=== PATIENT | female | born 2000 | race American Indian/Alaskan Native ===

== ENCOUNTER 2020-08-02 10:37 | Outpatient (CLI) | payer OTHER ==
[2020-08-02] MEDS ORDERED: PRENATAL CAPLE1 EAC1 PO (10:53)
[2020-08-02] MEDS ORDERED: MACROBID 100 M100 MG (10:54)
[2020-08-02] MEDS ORDERED: KEFLEX750 MG (10:54)
[2020-08-02] MEDS ORDERED: FOLIC ACID20 MG (10:54)
== END 2020-08-03 03:41 | disposition home or self-care (01) ==
LOC: OBS/DEL 10:37
PROVIDERS: ATTEND Obstetrics & Gynecology
DX: O60.03 Preterm labor without delivery, third trimester (principal)

== ENCOUNTER 2020-08-24 12:20 | Outpatient (CLI) | payer OTHER ==
[~2020-08-24 12:20] MED LIST: FOLIC ACID20 MG; KEFLEX750 MG; MACROBID 100 M100 MG; PRENATAL CAPLE1 EAC1 PO
== END 2020-08-24 17:51 | disposition home or self-care (01) ==
LOC: OBS/DEL 12:20
PROVIDERS: ATTEND Obstetrics & Gynecology
DX: O42.02 Full-term premature rupture of membranes, onset of labor within 24 hours of rupture (principal); O36.8130 Decreased fetal movements, third trimester, not applicable or unspecified; O46.8X3 Other antepartum hemorrhage, third trimester; Z3A.38 38 weeks gestation of pregnancy

== ENCOUNTER 2020-08-28 20:48 | Inpatient (IN) | payer OTHER ==
[~2020-08-28] VITALS: Ht 147.3 cm; Wt 2.3 kg
== END 2020-09-01 11:11 | disposition home or self-care (01) | DRG 788 ==
LOC: LDR 20:48 → OB/GYN 08-29 22:47
PROVIDERS: ADMIT Obstetrics & Gynecology; ATTEND Obstetrics & Gynecology
PROC: 3E0P7VZ Introduction of Hormone into Female Reproductive, Via Natural or Artificial Opening (ICD-10-PCS; 2020-08-29)
PROC: 4A1HXFZ Monitoring of Products of Conception, Cardiac Rhythm, External Approach (ICD-10-PCS; 2020-08-29)
PROC: 10D00Z1 Extraction of Products of Conception, Low, Open Approach (ICD-10-PCS; principal; 2020-08-29 20:00)
DX: O61.0 Failed medical induction of labor (principal); O42.02 Full-term premature rupture of membranes, onset of labor within 24 hours of rupture; Z3A.38 38 weeks gestation of pregnancy; Z37.0 Single live birth; Z20.822 Contact with and (suspected) exposure to COVID-19

== ENCOUNTER 2021-10-12 19:30 | Emergency (ER) | payer OTHER ==
[~2021-10-12] VITALS: Ht 152.4 cm; Wt 71.2 kg
[2021-10-12] MEDS ORDERED: ONDANSETRON HCL8 MG PO (22:46)
[2021-10-12] MEDS ORDERED: PEPCID AC20 MG PO (22:46)
== END 2021-10-12 22:54 | disposition home or self-care (01) ==
LOC: ER 19:30
DX: R11.2 Nausea with vomiting, unspecified (principal); Z88.8 Allergy status to other drugs, medicaments and biological substances; Z91.040 Latex allergy status; Z91.013 Allergy to seafood; Z20.822 Contact with and (suspected) exposure to COVID-19

== ENCOUNTER 2022-02-06 09:57 | Emergency (ER) | payer OTHER ==
[~2022-02-06] VITALS: Ht 147.3 cm; Wt 71.7 kg
[~2022-02-06 09:57] MED LIST changes: +ONDANSETRON HCL8 MG PO; +PEPCID AC20 MG PO
== END 2022-02-06 15:14 ==
LOC: ER 09:57
DX: A49.3 Mycoplasma infection, unspecified site (principal)

== ENCOUNTER 2022-05-24 12:15 | Emergency (ER) | payer OTHER ==
[~2022-05-24] VITALS: Ht 149.9 cm; Wt 72.6 kg
== END 2022-05-24 14:27 | disposition home or self-care (01) ==
LOC: ER 12:15
DX: O20.9 Hemorrhage in early pregnancy, unspecified (principal); Z3A.01 Less than 8 weeks gestation of pregnancy; Z88.8 Allergy status to other drugs, medicaments and biological substances

== ENCOUNTER 2023-04-12 12:51 | Emergency (ER) | payer OTHER ==
[~2023-04-12] VITALS: Ht 147.3 cm; Wt 66.2 kg
[2023-04-12] MEDS ORDERED: GUAIFENESIN/DEXTROMETHORPHAN 100 MG/5 ML ML PO ONE (15:45)
[2023-04-12] MEDS ORDERED: DEXAMETHASONE SODIUM PHOSPHATE 4 MG/ML VIAL IM ONE (15:45)
[2023-04-12 16:29] LABS: HEMATOCRIT 39.9 % (36.0-45.00); HEMOGLOBIN 13.2 g/dL (12.0-15.00); MEAN CELL VOLUME 79.1 fL (80.00-100.00); MEAN CORPUSCULAR HEMOGLOBIN 26.1 pg (27.00-32.0); PLATELET COUNT 273 K/uL (150-450); RED BLOOD COUNT 5.05 M/uL (4.00-6.00); RED CELL DISTRIBUTION WIDTH 14.3 % (11.5-14.5)
[2023-04-12] MEDS ORDERED: QC TUSSIN DM L118 ML PO (18:03)
== END 2023-04-12 18:11 | disposition home or self-care (01) ==
LOC: ER 12:51
PROVIDERS: Nurse Practitioner Family
DX: U07.1 COVID-19 (principal); Z88.8 Allergy status to other drugs, medicaments and biological substances; Z91.040 Latex allergy status; Z91.013 Allergy to seafood

== ENCOUNTER 2024-01-01 14:32 | Emergency (ER) | payer OTHER ==
[~2024-01-01] VITALS: Ht 147.3 cm; Wt 60.3 kg
[~2024-01-01 14:32] MED LIST changes: +QC TUSSIN DM L118 ML PO
[2024-01-01] MEDS ORDERED: FOLIC ACID0.8 M1 PO (15:06)
[2024-01-01] MEDS ORDERED: PRENATA CHEWAB1 EACH PO (15:06)
[2024-01-01] MEDS ORDERED: RINGERS SOLUTION,LACTATED 1,000 ML IV STA (15:32)
[2024-01-01 16:01] LABS: HEMATOCRIT 37.7 % (36.0-45.00); HEMOGLOBIN 12.8 g/dL (12.0-15.00); MEAN CELL VOLUME 78.2 fL (80.00-100.00); MEAN CORPUSCULAR HEMOGLOBIN 26.7 pg (27.00-32.0); MEAN CORPUSCULAR HGB CONC 34.1 g/dl (32.0-36.0); PLATELET COUNT 269 K/uL (150-450); RED BLOOD COUNT 4.82 M/uL (4.00-6.00); RED CELL DISTRIBUTION WIDTH 14.8 % (11.5-14.5)
[2024-01-01 16:12] LABS: PH,URINE 6.5 (5.0-8.0); URINE APPEARANCE Cloudy; URINE BILIRRUBIN Negative (NEGATIVE); URINE BLOOD Negative; URINE COLOR Yellow; URINE GLUCOSE Negative (NEGATIVE); URINE KETONE Trace (NEGATIVE); URINE LEUKOCYTE Trace; URINE NITRATE Negative; URINE PROTEIN Negative (NEGATIVE)
[2024-01-01 16:16] LABS: URINE EPITHELIAL CELLS 16.5 uL (0.0-38.8); URINE RBC 2.7 uL (0.0-20.8); URINE WBC 13.7 uL (0.0-23.2)
[2024-01-01 16:42] LABS: CALCIUM 9.3 mg/dL (8.5-10.1); CREATININE SERUM 0.6 mg/dL (0.55-1.02); GFR 121.8; POTASSIUM 3.86 mEq/L (3.5-5.1)
[2024-01-01] MEDS ORDERED: AMOX1TAB5 PO (20:25)
== END 2024-01-01 21:01 | disposition home or self-care (01) ==
LOC: ER 14:34
PROVIDERS: General Practice
DX: O99.611 Diseases of the digestive system complicating pregnancy, first trimester (principal); K92.89 Other specified diseases of the digestive system; R19.7 Diarrhea, unspecified; Z3A.10 10 weeks gestation of pregnancy; Z88.8 Allergy status to other drugs, medicaments and biological substances; Z91.040 Latex allergy status; Z91.013 Allergy to seafood

== ENCOUNTER 2024-01-27 13:56 | Emergency (ER) | payer OTHER ==
[~2024-01-27] VITALS: Ht 157.5 cm; Wt 64.0 kg
[~2024-01-27 13:56] MED LIST changes: +AMOX1TAB5 PO; +FOLIC ACID0.8 M1 PO; +PRENATA CHEWAB1 EACH PO
[2024-01-27 18:18] LABS: HEMATOCRIT 38.1 % (36.0-45.00); HEMOGLOBIN 12.5 g/dL (12.0-15.00); MEAN CELL VOLUME 80.3 fL (80.00-100.00); MEAN CORPUSCULAR HEMOGLOBIN 26.3 pg (27.00-32.0); MEAN CORPUSCULAR HGB CONC 32.7 g/dl (32.0-36.0); PLATELET COUNT 237 K/uL (150-450); RED BLOOD COUNT 4.74 M/uL (4.00-6.00); RED CELL DISTRIBUTION WIDTH 14.6 % (11.5-14.5)
[2024-01-27 19:01] LABS: ALBUMIN 3.7 gm/dL (3.4-5.0); BILIRUBIN TOTAL 0.38 mg/dL (0.3-1.2); CALCIUM 9.2 mg/dL (8.5-10.1); CREATININE SERUM 0.53 mg/dL (0.55-1.02); GFR 140.55; GLOBULINA 4.5 G/DL (2.4-3.5); POTASSIUM 3.71 mEq/L (3.5-5.1); TOTAL PROTEIN 8.2 gm/dL (6.4-8.2)
[2024-01-27 19:06] LABS: PH,URINE 5.5 (5.0-8.0); URINE APPEARANCE Cloudy; URINE BILIRRUBIN Negative (NEGATIVE); URINE BLOOD Negative; URINE COLOR Yellow; URINE GLUCOSE Negative (NEGATIVE); URINE KETONE 15 (NEGATIVE); URINE LEUKOCYTE Small; URINE NITRATE Negative; URINE PROTEIN Trace (NEGATIVE)
[2024-01-27 19:10] LABS: URINE BACTERIA 8829.6 uL (0.0-1933); URINE CAST 1.98 uL (0.0-1.40); URINE EPITHELIAL CELLS 55.3 uL (0.0-38.8); URINE RBC 5.4 uL (0.0-20.8); URINE WBC 238.2 uL (0.0-23.2)
[2024-01-27 19:26] LABS: URINE CRYSTALS NEGATIVE /HPF
[2024-01-27 19:27] LABS: URINE MUCUS NEGATIVE; URINE YEAST NEGATIVE /hpf
== END 2024-01-27 21:44 | disposition home or self-care (01) ==
LOC: ER 13:57
PROVIDERS: Preventive Medicine Public Health & General Preventive Medicine
DX: O99.341 Other mental disorders complicating pregnancy, first trimester (principal); Z3A.10 10 weeks gestation of pregnancy; F41.8 Other specified anxiety disorders; Z91.013 Allergy to seafood; Z91.040 Latex allergy status

== ENCOUNTER 2024-06-08 05:25 | Emergency (ER) | payer OTHER ==
[~2024-06-08] VITALS: Ht 147.3 cm; Wt 73.9 kg
[2024-06-08] MEDS ORDERED: ACETAMINOPHEN 500 MG GEL..CAP PO ONE ×2 (05:38→07:16)
[2024-06-08] MEDS ORDERED: METOCLOPRAMIDE HCL 5 MG/ML VIAL IM STA (06:36)
[2024-06-08] MEDS ORDERED: ACETAMINOPHEN 500 MG GEL..CAP PO STA (06:38)
[2024-06-08] MEDS ORDERED: RINGERS SOLUTION,LACTATED 1,000 ML IV STA (06:38)
[2024-06-08] MEDS ORDERED: FAMOtidine 10 MG/ML (4ML VIAL) IV PUSH STA (06:39)
[2024-06-08] MEDS ORDERED: METOCLOPRAMIDE HCL 5 MG/ML VIAL ONE (07:16)
[2024-06-08] MEDS ORDERED: FAMOTIDINE/PF 20 MG/2 ML VIAL ONE (07:17)
[2024-06-08 08:48] LABS: HEMATOCRIT 33.7 % (36.0-45.00); HEMOGLOBIN 11.1 g/dL (12.0-15.00); MEAN CELL VOLUME 81.8 fL (80.00-100.00); MEAN CORPUSCULAR HEMOGLOBIN 27.1 pg (27.00-32.0); MEAN CORPUSCULAR HGB CONC 33.1 g/dl (32.0-36.0); PLATELET COUNT 227 K/uL (150-450); RED BLOOD COUNT 4.12 M/uL (4.00-6.00); RED CELL DISTRIBUTION WIDTH 14.1 % (11.5-14.5)
[2024-06-08 10:22] LABS: PH,URINE 5.5 (5.0-8.0); URINE APPEARANCE Clear; URINE BILIRRUBIN Negative (NEGATIVE); URINE BLOOD Negative; URINE COLOR Yellow; URINE GLUCOSE Negative (NEGATIVE); URINE LEUKOCYTE Small; URINE NITRATE Negative; URINE PROTEIN Negative (NEGATIVE); URINE UROBILINOGEN 0.2 E.U./dl
[2024-06-08 10:27] LABS: URINE BACTERIA 6263.9 uL (0.0-1933); URINE EPITHELIAL CELLS 29.9 uL (0.0-38.8); URINE RBC 2.3 uL (0.0-20.8); URINE WBC 103.2 uL (0.0-23.2)
[2024-06-08 10:29] LABS: CREATININE SERUM 0.47 mg/dL (0.55-1.02); GFR 161.46; POTASSIUM 3.77 mEq/L (3.5-5.1)
[2024-06-08 10:47] LABS: URINE CAST 0.58 uL (0.0-1.40); URINE KETONE 80 (NEGATIVE)
== END 2024-06-08 12:55 | disposition home or self-care (01) ==
LOC: ER 05:26
PROVIDERS: Emergency Medicine
DX: O99.513 Diseases of the respiratory system complicating pregnancy, third trimester (principal); J10.1 Influenza due to other identified influenza virus with other respiratory manifestations; O23.43 Unspecified infection of urinary tract in pregnancy, third trimester; N39.0 Urinary tract infection, site not specified; Z3A.29 29 weeks gestation of pregnancy; Z20.822 Contact with and (suspected) exposure to COVID-19; Z88.8 Allergy status to other drugs, medicaments and biological substances; Z91.040 Latex allergy status; Z91.013 Allergy to seafood

== ENCOUNTER 2024-07-05 12:34 | Emergency (ER) | payer OTHER ==
[~2024-07-05] VITALS: Ht 147.3 cm; Wt 75.3 kg
[2024-07-05] MEDS ORDERED: ALBUTEROL SULFATE 3 ML/2.5 MG AMPUL.NEB IH SCH (15:00)
[2024-07-05] MEDS ORDERED: METHYLPREDNISOLONE SOD SUCC 125 MG VIAL IV ONE (15:00)
[2024-07-05] MEDS ORDERED: GUAIFEN/DEXTROMETHORPHAN/PE 10 ML BLIST.PACK PO ONE ×2 (15:00→15:06)
[2024-07-05] MEDS ORDERED: METHYLPREDNISOLONE SOD SUCC 40 MG VIAL ONE (15:06)
[2024-07-05 15:27] LABS: HEMATOCRIT 35.9 % (36.0-45.00); HEMOGLOBIN 11.8 g/dL (12.0-15.00); MEAN CELL VOLUME 81.1 fL (80.00-100.00); MEAN CORPUSCULAR HEMOGLOBIN 26.6 pg (27.00-32.0); MEAN CORPUSCULAR HGB CONC 32.7 g/dl (32.0-36.0); PLATELET COUNT 224 K/uL (150-450); RED BLOOD COUNT 4.43 M/uL (4.00-6.00); RED CELL DISTRIBUTION WIDTH 14.4 % (11.5-14.5)
[2024-07-05 16:00] LABS: CALCIUM 8.5 mg/dL (8.5-10.1); CREATININE SERUM 0.51 mg/dL (0.55-1.02); GFR 146.93; POTASSIUM 3.91 mEq/L (3.5-5.1)
[2024-07-05] MEDS ORDERED: ALBUTEROL SULFATE 3 ML/2.5 MG AMPUL.NEB IH ONE (16:27)
== END 2024-07-05 18:38 | disposition home or self-care (01) ==
LOC: ER 12:34
PROVIDERS: Emergency Medicine
DX: Z34.90 Encounter for supervision of normal pregnancy, unspecified, unspecified trimester (principal); Z3A.33 33 weeks gestation of pregnancy; R05.9 Cough, unspecified; J06.9 Acute upper respiratory infection, unspecified; Z88.3 Allergy status to other anti-infective agents; Z91.013 Allergy to seafood; Z91.040 Latex allergy status

== ENCOUNTER 2024-08-07 21:44 | Inpatient (IN) | payer OTHER ==
[~2024-08-07] VITALS: Ht 147.3 cm; Wt 3.2 kg
[2024-08-07 21:46] VITALS: BP 88/60
[2024-08-07 22:19] LABS: BASO % 0.3 % (0.1-1.2); EOS # 0.02 (0.04-0.54); EOS % 0.2 % (0.7-7.0); HEMATOCRIT 34.7 % (34.1-44.9); HEMOGLOBIN 11.3 g/dL (11.2-15.7); LYMPH # 1.51 (1.18-3.74); LYMPH % 14.3 % (19.3-53.1); MEAN CORPUSCULAR HEMOGLOBIN 26.3 pg (25.6-32.2); MONO # 0.77 (0.24-0.82); MONO % 7.3 % (4.7-12.5); NEUT # 8.19 (1.56-6.13); NEUT % 77.4 % (34.0-71.1); PLATELET COUNT 210 K/uL (163-369); RED BLOOD COUNT 4.29 M/uL (3.93-5.22); RED CELL DISTRIBUTION WIDTH 14.6 % (11.6-14.4)
[2024-08-07 22:21] LABS: PH,URINE 6.5 (5.0-8.0); URINE APPEARANCE Cloudy; URINE BILIRRUBIN Negative (NEGATIVE); URINE BLOOD Negative; URINE COLOR Yellow; URINE GLUCOSE Negative (NEGATIVE); URINE KETONE Trace (NEGATIVE); URINE LEUKOCYTE Moderate; URINE NITRATE Negative; URINE PROTEIN Trace (NEGATIVE)
[2024-08-07 22:25] LABS: URINE EPITHELIAL CELLS 91.3 uL (0.0-38.8); URINE RBC 11.3 uL (0.0-20.8); URINE WBC 254.2 uL (0.0-23.2)
[2024-08-07] MEDS ORDERED: RINGERS SOLUTION,LACTATED 1,000 ML IV SCH (22:30)
[2024-08-07 22:38] LABS: INR < 0.93; PARTIAL THROMBOPLASTIN TIME 24.2 SECONDS (22.0-34.0); PROTHROMBIN TIME 9.9 SECONDS (9.0-11.5)
[2024-08-07 22:52] LABS: URINE MUCUS SCANT
[2024-08-07 22:55] LABS: URINE CRYSTALS FEW /HPF; URINE YEAST FEW /hpf
[2024-08-07 23:56] VITALS: BP 103/70
[2024-08-08] MEDS ORDERED: CEFAZOLIN SODIUM 1,000 MG VIAL IV SCH ×2 (00:45→02:00)
[2024-08-08 03:49] VITALS: BP 103/71
[2024-08-08 06:25] VITALS: BP 104/69; O2SAT 100
[2024-08-08] MEDS ORDERED: ERYTHROMYCIN BASE OPHT 1GM EACH TUBE OP ONE (10:58)
[2024-08-08] MEDS ORDERED: OXYTOCIN 10 UNITS/ML VIAL ONE ×2 (10:58→14:15)
[2024-08-08] MEDS ORDERED: KETOROLAC TROMETHAMINE 60 MG VIAL IM STA (12:49)
[2024-08-08] MEDS ORDERED: OXYTOCIN 1,000 ML IV SCH (13:00)
[2024-08-08] MEDS ORDERED: RINGERS SOLUTION,LACTATED 1,000 ML IV SCH (13:00)
[2024-08-08] MEDS ORDERED: MORPHINE SULFATE 4 MG/ML CARTRIDGE IV PRN (13:00)
[2024-08-08] MEDS ORDERED: CHLORHEXIDINE GLUCONATE 120 ML BOTTLE TOP ONE (13:00)
[2024-08-08] MEDS ORDERED: MORPHINE SULFATE 4 MG/ML VIAL IV ONE (13:45)
[2024-08-08] MEDS ORDERED: CEFAZOLIN SODIUM 1,000 MG VIAL ONE (14:08)
[2024-08-08] MEDS ORDERED: KETOROLAC TROMETHAMINE 60 MG VIAL IM ONE ×2 (14:08→14:15)
[2024-08-08 15:03] VITALS: BP 109/67
[2024-08-08 15:12] LABS: BASO % 0.4 % (0.1-1.2); EOS # 0.01 (0.04-0.54); EOS % 0.1 % (0.7-7.0); HEMATOCRIT 36.2 % (34.1-44.9); HEMOGLOBIN 11.7 g/dL (11.2-15.7); LYMPH # 1.29 (1.18-3.74); LYMPH % 10.1 % (19.3-53.1); MEAN CORPUSCULAR HEMOGLOBIN 25.8 pg (25.6-32.2); MONO # 0.78 (0.24-0.82); MONO % 6.1 % (4.7-12.5); NEUT # 10.58 (1.56-6.13); NEUT % 82.9 % (34.0-71.1); PLATELET COUNT 213 K/uL (163-369); RED BLOOD COUNT 4.53 M/uL (3.93-5.22); RED CELL DISTRIBUTION WIDTH 14.5 % (11.6-14.4)
[2024-08-08 16:35] VITALS: BP 107/68
[2024-08-09] VITALS: BP 117/76
[2024-08-09 08:09] VITALS: BP 128/84
[2024-08-09] MEDS ORDERED: ACETAMINOPHEN WITH CODEINE 1 UDTAB TABLET PO PRN (09:00)
[2024-08-09 17:09] VITALS: BP 114/79
[2024-08-10 03:12] VITALS: BP 114/75
[2024-08-10 08:57] VITALS: BP 110/76
[2024-08-10 13:57] VITALS: BP 112/75
== END 2024-08-10 17:13 | disposition home or self-care (01) | DRG 785 ==
LOC: OB/GYN 21:44 → LDR 21:44 → OB/GYN 08-08 13:09
PROVIDERS: ADMIT Obstetrics & Gynecology; ATTEND Obstetrics & Gynecology
PROC: 10D00Z1 Extraction of Products of Conception, Low, Open Approach (ICD-10-PCS; principal; 2024-08-07)
PROC: 0UB70ZZ Excision of Bilateral Fallopian Tubes, Open Approach (ICD-10-PCS; 2024-08-07)
PROC: 4A1HXCZ Monitoring of Products of Conception, Cardiac Rate, External Approach (ICD-10-PCS; 2024-08-07)
DX: O34.211 Maternal care for low transverse scar from previous cesarean delivery (principal); Z3A.38 38 weeks gestation of pregnancy; Z37.0 Single live birth; Z30.2 Encounter for sterilization